=== PATIENT | female | born 1975 | race Hispanic/Latino ===

== ENCOUNTER 2019-01-26 10:25 | Emergency (ER) | payer SELFPAY ==
[~2019-01-26] VITALS: Ht 170.2 cm; Wt 132.1 kg
--- OUTSIDE RECORDS SUMMARY | 2019-01-26 10:28 | XMS REPORT | Clinical Summary ---
Author Author [facility] Address Unknown Phone Unavailable Care Team Providers Care Submarine Advisory Team Watch Officer Name Role Phone Asked, No Pcp PCP Unavailable Allergies No Known Allergies Medications End Date Status Medication Sig Dispensed Refills Start Date Active MULTIVITAMIN ORAL Take by 0 mouth. 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 Leg edema, right 01/08/2018 Trochanteric bursitis, right hip 09/21/2017 Hypertension 11/01/2016 High cholesterol 11/01/2016 Morbid obesity 02/02/2014 Family History Medical History Relation Name Comments Hypertension Mother Stroke Mother Relation Name Status Comments Father Alive Mother Social History Date Tobacco Use Types Packs/Day Years Used Never Smoker Smokeless Tobacco: Never Used Drinks/Week oz/Week Comments Alcohol Use No Sex Assigned at Date Recorded Not on file Industry Job Start Date Occupation Not on file Not on file Not on file Travel End Travel History Travel Start No recent travel history available. 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
--- OUTSIDE RECORDS SUMMARY | 2019-01-26 10:28 | XMS REPORT ---
Author [facility] Address Unknown Phone Unavailable Care Team Providers Care Vacation Guide Name Role Phone Unavailable Unavailable Payers Payer Name Policy Type Policy Number Effective Date Expiration Date Problems This patient has no known problems. Allergies, Adverse Reactions, Alerts Allergy Name Allergy Type Status Severity Reaction(s) Onset Date Inactive Date Treating Clinician Comments No Known Allergies DA Active U 2018-02-20 00:00:00 No Known Allergies DA Active U 2018-02-13 00:00:00 Medications This patient has no known medications. Results Test Description Test Time Test Comments Text Results Atomic Results Result Comments OVARY W/WO TUBE,NON-NEOPLASTIC 2018-02-21 14:41:00 RUN DATE: 02/25/18 [facility] PAGE 1 RUN TIME: 704 Specimen Inquiry RUN USER: INTERFACE [facility] #: [id number] LOC: [facility] #: [id number] AGE/SX: 42/F ROOM: RE02/20/18REG DR: Fabio Murillo MD : 77 BED: DIS: STATUS: [facility] TLOC: SPEC #: [id number] RECD: 02/20/18 STATUS: [facility] #: [id number] SOL: 02/20/18- SUBM DR: Fabio Murillo MD ENTERED: 02/20/18 SP TYPE: CORTEZ QUEZADA DR: ORDERED: LEVEL IV CODES: [id number] - OVARY, NOS PROCEDURES: LEVEL IV (Incomplete) TISSUES: OVARY, NOS - RIGHT OVARIAN CYST CLINICAL HISTORY 42 year old, ovarian cyst, right; pelvic pain, pelvic mass (wpd) FINAL DIAGNOSIS Right ovarian cyst, resection - benign fibrous- lined cyst Tissue code 1 CPT code(s): 43348 cds/kr 02/21/18 @ 1430 cds/wpd 02/22/18 @ 1734 GROSS DESCRIPTION The specimen is received in a formalin-filled container, labeled with the patient's name and designated "right ovarian cyst". The specimen consists of a previous partially opened 10 x 6 x 0.3 cm semi-translucent cystic tissue with a hernandes, wrinkled internal lining with no identifiable papillary lesion or mass and containing scant, clear, thin fluid. Pulmonary Function Technician sections are submitted in one cassette. Additional sections of the ovarian cyst are submitted labeled RE1 through RE5. /wpd 02/20/18 @ 0705 MICROSCOPIC DESCRIPTION The ovarian cyst is a benign fibrous-lined cyst. No definite epithelial lining is identified. cds/wpd 02/22/18 @ 1527 Signed Brady Bob 02/21/18 1441 END OF REPORT
[2019-01-26] MEDS: LIDOCAINE HCL 1% 2 ML AMP INJ ONE (11:16)
[2019-01-26 11:39] VITALS: BP 133/89
== END 2019-01-26 11:53 | disposition home or self-care (01) ==
LOC: FSED 10:25
DX: L02.01 Cutaneous abscess of face (principal); I10 Essential (primary) hypertension
CPT/HCPCS: 10061; 96372; 99283; J2001; 10060